=== PATIENT | female | born 1970 | race African-American/Black ===

== ENCOUNTER 2020-07-15 13:27 | Inpatient (IN) | payer OTHER ==
[2020-07-15 15:56] VITALS: BMI 28.3
[2020-07-16] MEDS ORDERED: MAG HYDROX/AL HYDROX/SIMETH 30 ML UNIT-DOSE CUP PO PRN (00:33)
[2020-07-16] MEDS ORDERED: MAGNESIUM CITRATE 300 ML BOTTLE PO PRN (00:33)
[2020-07-16] MEDS ORDERED: MAGNESIUM HYDROX 2400MG/30ML ORAL SUSPENSION 30 ML CUP PO PRN (00:33)
[2020-07-16] MEDS ORDERED: BISMUTH SUBSALICYLATE 524 MG/30 ML UD PO PRN (00:33)
[2020-07-16] MEDS ORDERED: ONDANSETRON *ODT* 4 MG TABLET SL PRN (00:33)
[2020-07-16] MEDS ORDERED: NICOTINE POLACRILEX 2 MG GUM BUC PRN (00:33)
[2020-07-16] MEDS ORDERED: IBUPROFEN 400 MG TABLET (FP) PO PRN (00:33)
[2020-07-16] MEDS ORDERED: ACETAMINOPHEN 325 MG TABLET (FP) PO PRN ×2 (00:33)
[2020-07-16] MEDS ORDERED: MENTHOL/PHENOL 1 EACH UD MM PRN (00:33)
[2020-07-16] MEDS ORDERED: METHOCARBAMOL 500 MG TABLET PO PRN (00:33)
[2020-07-16] MEDS ORDERED: chlordiazePOXIDE HCL 25 MG CAPSULE PO PRN (00:33)
[2020-07-16] MEDS ORDERED: chlordiazePOXIDE HCL 25 MG CAPSULE ONE ×2 (00:54→05:27)
[2020-07-16] MEDS: chlordiazePOXIDE HCL 25 MG CAPSULE PO SCH ×4 (05:30→22:35)
[2020-07-16] MEDS: PRENATAL VITAMINS W/ FOLIC ACID TABLET (FP) PO SCH (10:57)
[2020-07-16] MEDS: NICOTINE 14 MG/24 HOURS TOPICAL PATCH TD SCH (11:00)
[2020-07-16] MEDS: amLODIPine BESYLATE 10 MG TABLET (FP) PO SCH (13:57)
[2020-07-16] MEDS ORDERED: QUEtiapine FUMARATE 50 MG TABLET PO PRN (22:00)
[2020-07-16] MEDS ORDERED: MELATONIN 5 MG TABLETS PO SCH (22:00)
[2020-07-16] MEDS ORDERED: THIAMINE HCL 100 MG TABLET (FP) PO SCH (22:00)
[2020-07-17] MEDS: chlordiazePOXIDE HCL 25 MG CAPSULE PO SCH ×3 (06:20→19:09)
[2020-07-17] MEDS: NICOTINE 14 MG/24 HOURS TOPICAL PATCH TD SCH (10:20)
[2020-07-17] MEDS: PRENATAL VITAMINS W/ FOLIC ACID TABLET (FP) PO SCH (10:21)
[2020-07-17] MEDS: amLODIPine BESYLATE 10 MG TABLET (FP) PO SCH (10:21)
[2020-07-17 10:40] LABS: ALBUMIN 3.5 g/dl (3.4-5.0); CALCIUM 9.1 mg/dL (8.5-10.1)
[2020-07-17 10:41] LABS: BLOOD UREA NITROGEN 15.7 mg/dL (7-18)
[2020-07-17 10:44] LABS: HEMATOCRIT 37.6 % (32.4-45.2); HEMOGLOBIN 12.2 GM/dL (10.7-15.3); MCHC 32.5 g/dl (32.0-36.0); MEAN CELL VOLUME 95.2 fl (80-96); MEAN PLT VOLUME 11.5 fl (7.5-11.1); PLATELET COUNT 160 K/MM3 (134-434); RBC 3.95 M/mm3 (3.60-5.2); RDW 14.6 % (11.6-15.6); WHITE BLOOD COUNT 3.8 K/mm3 (4.0-10.0)
[2020-07-17 10:46] LABS: BILIRUBIN,TOTAL 0.5 mg/dL (0.2-1)
[2020-07-17 18:09] VITALS: BP 145/97; PULSE 91; TEMP 97.5
[2020-07-18] MEDS ORDERED: chlordiazePOXIDE HCL 10 MG CAPSULE PO PRN
[2020-07-18] MEDS ORDERED: chlordiazePOXIDE HCL 10 MG CAPSULE PO SCH (05:00)
[2020-07-19] MEDS ORDERED: chlordiazePOXIDE HCL 10 MG CAPSULE PO SCH (05:00)
[2020-07-20] MEDS ORDERED: chlordiazePOXIDE HCL 10 MG CAPSULE PO ONE (05:00)
== END 2020-07-17 17:30 | disposition left against medical advice (07) | DRG 770 ==
LOC: YASAS 13:27 → Y6N 07-16 09:16
PROVIDERS: ADMIT Allergy & Immunology; ATTEND Allergy & Immunology
PROC: HZ2ZZZZ Detoxification Services for Substance Abuse Treatment (ICD-10-PCS; principal; 2020-07-16)
DX: F10.230 Alcohol dependence with withdrawal, uncomplicated (principal); F14.20 Cocaine dependence, uncomplicated; F11.23 Opioid dependence with withdrawal; F17.210 Nicotine dependence, cigarettes, uncomplicated; F19.24 Other psychoactive substance dependence with psychoactive substance-induced mood disorder; F31.9 Bipolar disorder, unspecified; I10 Essential (primary) hypertension; Z56.0 Unemployment, unspecified; Z59.0 Homelessness
CPT/HCPCS: 36415; 80053; 81025; 85027; 86780; 93005; 93010; C9803; U0003; U0005

== ENCOUNTER 2020-09-18 12:05 | Inpatient (IN) | payer OTHER ==
[2020-09-18 12:50] VITALS: BMI 27.2
[2020-09-18] MEDS ORDERED: LISINOPRIL 10 MG TABLET ONE (13:28)
[2020-09-18] MEDS ORDERED: LISINOPRIL 20 MG TABLET PO ONE (13:30)
[2020-09-18] MEDS ORDERED: ONDANSETRON *ODT* 4 MG TABLET SL PRN (13:35)
[2020-09-18] MEDS ORDERED: MAG HYDROX/AL HYDROX/SIMETH 30 ML UNIT-DOSE CUP PO PRN (13:35)
[2020-09-18] MEDS ORDERED: MAGNESIUM HYDROX 2400MG/30ML ORAL SUSPENSION 30 ML CUP PO PRN (13:35)
[2020-09-18] MEDS ORDERED: NICOTINE POLACRILEX 2 MG GUM BUC PRN (13:35)
[2020-09-18] MEDS ORDERED: MAGNESIUM CITRATE 300 ML BOTTLE PO PRN (13:35)
[2020-09-18] MEDS ORDERED: MENTHOL/PHENOL 1 EACH UD MM PRN (13:35)
[2020-09-18] MEDS ORDERED: BISMUTH SUBSALICYLATE 262 MG/15 ML BTL PO PRN (13:35)
[2020-09-18] MEDS ORDERED: ACETAMINOPHEN 325 MG TABLET (FP) PO PRN ×2 (13:35)
[2020-09-18] MEDS: hydrOXYzine PAMOATE 25 MG CAPSULE (FP) PO SCH ×3 (14:48→22:12)
[2020-09-18] MEDS: PRENATAL VITAMINS W/ FOLIC ACID TABLET (FP) PO SCH (14:49)
[2020-09-18] MEDS: METHOCARBAMOL 500 MG TABLET PO PRN (14:49)
[2020-09-18 17:18] LABS: HEMATOCRIT 38.2 % (32.4-45.2); HEMOGLOBIN 11.9 GM/dL (10.7-15.3); MCH 29.9 pg (25.7-33.7); MCHC 31.1 g/dl (32.0-36.0); MEAN CELL VOLUME 96.3 fl (80-96); MEAN PLT VOLUME 11.7 fl (7.5-11.1); PLATELET COUNT 152 10^3/uL (134-434); RBC 3.96 M/mm3 (3.60-5.2); RDW 13.9 % (11.6-15.6); WHITE BLOOD COUNT 3.8 K/mm3 (4.0-10.0)
[2020-09-18] MEDS: IBUPROFEN 400 MG TABLET (FP) PO PRN (17:18)
[2020-09-18 17:24] LABS: ALBUMIN 3.8 g/dl (3.4-5.0); BLOOD UREA NITROGEN 9.9 mg/dL (7-18); CALCIUM 8.9 mg/dL (8.5-10.1)
[2020-09-18 17:26] LABS: CREATININE 0.8 mg/dL (0.55-1.3)
[2020-09-18 17:28] LABS: TOT PROT 7.2 g/dl (6.4-8.2)
[2020-09-18 17:41] LABS: BILIRUBIN,TOTAL 0.4 mg/dL (0.2-1)
[2020-09-18 18:11] LABS: HIV INTERPRETATION NEGATIVE (NEGATIVE)
[2020-09-18] MEDS: MELATONIN 5 MG TABLETS PO SCH (22:12)
[2020-09-18] MEDS: QUEtiapine FUMARATE 50 MG TABLET PO SCH (22:12)
[2020-09-18] MEDS: THIAMINE HCL 100 MG TABLET (FP) PO SCH (22:12)
[2020-09-18] MEDS: traZODone HCL 50 MG TABLET (FP) PO SCH (22:12)
[2020-09-19] MEDS: hydrOXYzine PAMOATE 25 MG CAPSULE (FP) PO SCH ×5 (05:40→22:14)
[2020-09-19] MEDS: PRENATAL VITAMINS W/ FOLIC ACID TABLET (FP) PO SCH (09:32)
[2020-09-19] MEDS: METHOCARBAMOL 500 MG TABLET PO PRN ×2 (09:32→17:53)
[2020-09-19] MEDS: LISINOPRIL 20 MG TABLET PO SCH (09:32)
[2020-09-19] MEDS ORDERED: diazePAM 5 MG TABLET PO PRN (09:36)
[2020-09-19] MEDS: POTASSIUM CHLORIDE ORAL LIQUID 20 MEQ/15 ML PO SCH ×2 (10:15→22:14)
[2020-09-19] MEDS: diazePAM 5 MG TABLET PO SCH ×3 (10:16→22:14)
[2020-09-19] MEDS: IBUPROFEN 400 MG TABLET (FP) PO PRN (17:54)
[2020-09-19] MEDS ORDERED: LISINOPRIL 10 MG TABLET PO ONE (21:14)
[2020-09-19] MEDS: MELATONIN 5 MG TABLETS PO SCH (22:14)
[2020-09-19] MEDS: THIAMINE HCL 100 MG TABLET (FP) PO SCH (22:14)
[2020-09-19] MEDS: QUEtiapine FUMARATE 50 MG TABLET PO SCH (22:14)
[2020-09-19] MEDS: traZODone HCL 50 MG TABLET (FP) PO SCH (22:14)
[2020-09-20] MEDS: diazePAM 5 MG TABLET PO SCH ×4 (06:05→22:14)
[2020-09-20] MEDS: hydrOXYzine PAMOATE 25 MG CAPSULE (FP) PO SCH ×5 (06:05→22:18)
[2020-09-20] MEDS: POTASSIUM CHLORIDE ORAL LIQUID 20 MEQ/15 ML PO SCH ×2 (10:03→22:13)
[2020-09-20] MEDS: PRENATAL VITAMINS W/ FOLIC ACID TABLET (FP) PO SCH (10:03)
[2020-09-20] MEDS: LISINOPRIL 20 MG TABLET PO SCH (10:03)
[2020-09-20] MEDS: METHOCARBAMOL 500 MG TABLET PO PRN (10:03)
[2020-09-20] MEDS: IBUPROFEN 400 MG TABLET (FP) PO PRN (10:05)
[2020-09-20] MEDS: traZODone HCL 50 MG TABLET (FP) PO SCH (22:14)
[2020-09-20] MEDS: THIAMINE HCL 100 MG TABLET (FP) PO SCH (22:14)
[2020-09-20] MEDS: QUEtiapine FUMARATE 50 MG TABLET PO SCH (22:14)
[2020-09-20] MEDS: MELATONIN 5 MG TABLETS PO SCH (22:15)
[2020-09-20] MEDS ORDERED: LISINOPRIL 5 MG TABLET PO ONE (23:46)
[2020-09-21] MEDS: diazePAM 5 MG TABLET PO SCH ×3 (05:47→22:06)
[2020-09-21] MEDS: hydrOXYzine PAMOATE 25 MG CAPSULE (FP) PO SCH ×5 (05:48→22:56)
[2020-09-21] MEDS: PRENATAL VITAMINS W/ FOLIC ACID TABLET (FP) PO SCH (10:07)
[2020-09-21] MEDS: METHOCARBAMOL 500 MG TABLET PO PRN (10:08)
[2020-09-21] MEDS: LISINOPRIL 20 MG TABLET PO SCH (10:08)
[2020-09-21] MEDS: IBUPROFEN 400 MG TABLET (FP) PO PRN ×2 (10:09→19:31)
[2020-09-21] MEDS: QUEtiapine FUMARATE 50 MG TABLET PO SCH (22:06)
[2020-09-21] MEDS: traZODone HCL 50 MG TABLET (FP) PO SCH (22:06)
[2020-09-21] MEDS: THIAMINE HCL 100 MG TABLET (FP) PO SCH (22:06)
[2020-09-21] MEDS: MELATONIN 5 MG TABLETS PO SCH (22:56)
[2020-09-22] MEDS: diazePAM 5 MG TABLET PO SCH ×2 (06:18→17:52)
[2020-09-22] MEDS: hydrOXYzine PAMOATE 25 MG CAPSULE (FP) PO SCH ×5 (06:18→22:08)
[2020-09-22] MEDS: LISINOPRIL 20 MG TABLET PO SCH (10:31)
[2020-09-22] MEDS: PRENATAL VITAMINS W/ FOLIC ACID TABLET (FP) PO SCH (10:31)
[2020-09-22] MEDS: METHOCARBAMOL 500 MG TABLET PO PRN ×2 (10:31→22:10)
[2020-09-22] MEDS ORDERED: cloNIDine HCL 0.1 MG TABLET PO ONE (12:15)
[2020-09-22] MEDS: IBUPROFEN 400 MG TABLET (FP) PO PRN (13:25)
[2020-09-22] MEDS: THIAMINE HCL 100 MG TABLET (FP) PO SCH (22:08)
[2020-09-22] MEDS: traZODone HCL 50 MG TABLET (FP) PO SCH (22:08)
[2020-09-22] MEDS: QUEtiapine FUMARATE 50 MG TABLET PO SCH (22:08)
[2020-09-22] MEDS: MELATONIN 5 MG TABLETS PO SCH (22:09)
[2020-09-23] MEDS ORDERED: diazePAM 5 MG TABLET PO ONE (06:00)
[2020-09-23] MEDS: hydrOXYzine PAMOATE 25 MG CAPSULE (FP) PO SCH ×2 (06:52→09:46)
[2020-09-23 09:24] VITALS: BP 152/98; PULSE 86; TEMP 96.9
[2020-09-23] MEDS: LISINOPRIL 20 MG TABLET PO SCH (09:46)
[2020-09-23] MEDS: PRENATAL VITAMINS W/ FOLIC ACID TABLET (FP) PO SCH (09:46)
== END 2020-09-23 09:17 | disposition home or self-care (01) | DRG 774 ==
LOC: YASAS 12:05 → Y3N 13:38 → UNDOADMIN 13:38
PROVIDERS: ADMIT Allergy & Immunology; ATTEND Allergy & Immunology
PROC: HZ2ZZZZ Detoxification Services for Substance Abuse Treatment (ICD-10-PCS; principal; 2020-09-18)
DX: F10.230 Alcohol dependence with withdrawal, uncomplicated (principal); F14.20 Cocaine dependence, uncomplicated; F12.20 Cannabis dependence, uncomplicated; F17.210 Nicotine dependence, cigarettes, uncomplicated; F19.24 Other psychoactive substance dependence with psychoactive substance-induced mood disorder; F31.9 Bipolar disorder, unspecified; I10 Essential (primary) hypertension; M79.89 Other specified soft tissue disorders; Z91.14 Patient's other noncompliance with medication regimen
CPT/HCPCS: 36415; 80053; 81025; 82947; 84132; 84450; 85027; 86780; 87389; C9803; J0735; U0003; U0005